=== PATIENT | female | born 1945 | race Hispanic/Latino ===

== ENCOUNTER 2018-04-18 11:30 | Emergency (ER) | payer MEDICARE ==
[~2018-04-18 11:30] MED LIST: AMIT25TA9 PO; FLUO40CA49 PO; GABA-529 PO; OMEP40CA37 PO; TRAM-355 PO; [UNRECOGNIZED DRUG - OTHER] PO
[2018-04-18] MEDS ORDERED: SILVER SULFADIAZINE CREAM 50 GM TP ONE (12:11)
[2018-04-18] MEDS ORDERED: TETANUS/DIPHTHERIA TOXOID [ADULT] 0.5 ML VIAL IM ONE (12:11)
[2018-04-18] MEDS ORDERED: ACETAMINOPHEN-CODEINE 300/30MG TAB ONE (12:11)
== END 2018-04-18 13:33 | disposition home or self-care (01) ==
LOC: EDH 11:30
DX: T25.221A Burn of second degree of right foot, initial encounter (principal); T31.0 Burns involving less than 10% of body surface; E78.5 Hyperlipidemia, unspecified; I10 Essential (primary) hypertension; Z90.710 Acquired absence of both cervix and uterus; X12.XXXA Contact with other hot fluids, initial encounter; Y93.E1 Activity, personal bathing and showering; Y92.098 Other place in other non-institutional residence as the place of occurrence of the external cause; Y99.8 Other external cause status
CPT/HCPCS: 16020; 90471; 90714

== ENCOUNTER 2020-10-14 01:43 | Emergency (ER) | payer MEDICARE ==
[~2020-10-14] VITALS: Ht 149.9 cm; Wt 81.2 kg
[~2020-10-14 01:43] MED LIST changes: +OMEP40CA21 PO; -OMEP40CA37 PO
[2020-10-14] MEDS ORDERED: METH4TAB3 PO (06:01)
[2020-10-14 06:45] VITALS: BP 133/54
== END 2020-10-14 08:09 | disposition home or self-care (01) ==
LOC: EDH 01:43
DX: S00.83XA Contusion of other part of head, initial encounter (principal); M79.18 Myalgia, other site; M54.2 Cervicalgia; F32.9 Major depressive disorder, single episode, unspecified; I10 Essential (primary) hypertension; M19.90 Unspecified osteoarthritis, unspecified site; Z79.899 Other long term (current) drug therapy; W18.39XA Other fall on same level, initial encounter; Y93.01 Activity, walking, marching and hiking; Y92.89 Other specified places as the place of occurrence of the external cause; Y99.8 Other external cause status
CPT/HCPCS: 70450; 72125

== ENCOUNTER 2022-05-10 00:13 | Observation (INO) | payer MEDICARE ==
[~2022-05-10] VITALS: Ht 144.8 cm; Wt 81.5 kg
[~2022-05-10 00:13] MED LIST changes: +METH4TAB3 PO
[2022-05-10 00:56] LABS: BASOPHILS % (AUTO) 0.2 % (0.0-5.0); EOSINOPHILS % (AUTO) 3.4 % (0.0-8.0); HEMATOCRIT 34.9 % (36-48); LYMPHOCYTES % (AUTO) 34.7 % (21.0-51.0); MEAN CORPUSCULAR HGB CONC 32.7 g/dL (32.0-36.0); MEAN CORPUSCULAR VOLUME 91.8 fL (79-99); MONOCYTES % (AUTO) 8.3 % (3.0-13.0); NEUTROPHILS % (AUTO) 53.2 % (40.0-77.0); PLATELET COUNT (AUTO) 204 K/uL (130-400); RED CELL DISTRIBUTION WIDTH 15.5 % (11.0-15.5); WHITE BLOOD COUNT (AUTO) 5.1 K/uL (4.8-10.8)
[2022-05-10 00:59] LABS: APPEARANCE,URINE CLEAR (CLEAR); BILIRUBIN,URINE NEGATIVE (NEGATIVE); COLOR,URINE LIGHT-YELLOW (YELLOW); GLUCOSE, URINE (UA) NEGATIVE (NEGATIVE); KETONES,URINE NEGATIVE (NEGATIVE); LEUKOCYTE ESTERASE ,URINE NEGATIVE Leu/uL (NEGATIVE); NITRATE,URINE NEGATIVE (NEGATIVE); OCCULT BLOOD,URINE NEGATIVE (NEGATIVE); PROTEIN,URINE NEGATIVE (NEGATIVE); UROBILINOGEN,URINE 0.2 mg/dL (0.2-1.0)
[2022-05-10 01:30] LABS: POTASSIUM 4.3 mmol/L (3.5-5.1)
[2022-05-10 01:31] LABS: ALBUMIN 3.8 g/dL (3.5-5.0); CREATININE 1.3 mg/dL (0.5-1.5)
[2022-05-10] MEDS ORDERED: POTASSIUM CHLORIDE 20MEQ/100ML 100 ML IV PRN (03:00)
[2022-05-10] MEDS ORDERED: LACTULOSE 20 GM/30 ML UDCUP PO PRN (03:00)
[2022-05-10] MEDS ORDERED: MAGNESIUM 2GM PREMIX 50ML 50 ML IV PRN (03:00)
[2022-05-10] MEDS ORDERED: MORPHINE 4 MG SYG IV PRN (03:00)
[2022-05-10] MEDS ORDERED: ACETAMINOPHEN 325 MG TAB PO PRN ×2 (03:00)
[2022-05-10] MEDS ORDERED: ONDANSETRON 4MG INJ IV PRN (03:00)
[2022-05-10] MEDS ORDERED: POTASSIUM CHLORIDE 10% ELIXIR 20 MEQ/15 ML UDCUP PO PRN (03:00)
[2022-05-10] MEDS ORDERED: LIDOCAINE HCL-MPF 1% 2ML VIAL IV PRN (03:00)
[2022-05-10] MEDS ORDERED: MORPHINE 2 MG SYG IV PRN (03:00)
[2022-05-10] MEDS ORDERED: KCL 20 MEQ ERTAB PO PRN (03:00)
[2022-05-10] MEDS ORDERED: LIDOCAINE HCL 2% VISCOUS 15 ML UDCUP ONE (03:28)
[2022-05-10] MEDS ORDERED: MAG/ALUM/SIMETH 30 ML UDCUP ONE (03:28)
[2022-05-10] MEDS ORDERED: DICYCLOMINE HCL 10 MG/5 ML ML PO ONE ×2 (03:29→03:30)
[2022-05-10] MEDS ORDERED: MAG/ALUM/SIMETH 30 ML UDCUP PO ONE (03:30)
[2022-05-10] MEDS ORDERED: LIDOCAINE HCL 2% VISCOUS 15 ML UDCUP PO ONE (03:30)
[2022-05-10] MEDS: LACTATED RINGERS 1000ML 1,000 ML IV SCH ×2 (03:33→20:40)
[2022-05-10] MEDS ORDERED: IOHEXOL 350 MG/ML 100ML INFUS..BTL IV ONE (04:23)
[2022-05-10 05:05] VITALS: BP 133/66
[2022-05-10] MEDS ORDERED: PANT40TA54 PO ×2 (06:27→17:09)
[2022-05-10] MEDS ORDERED: LISI10TA24 PO ×2 (06:27→17:09)
[2022-05-10] MEDS ORDERED: HYDR-4419 PO ×2 (06:27→17:09)
[2022-05-10] MEDS ORDERED: HYDR5TAB14 PO ×2 (06:27→17:09)
[2022-05-10] MEDS ORDERED: ATOR10TA69 PO ×2 (06:27→17:09)
[2022-05-10] MEDS ORDERED: FERS325 PO (06:27)
[2022-05-10] MEDS ORDERED: PERM60CR4 TP ×2 (06:27→17:09)
[2022-05-10] MEDS ORDERED: LINA145C PO ×2 (06:27→17:09)
[2022-05-10] MEDS ORDERED: CELE-84 PO ×2 (06:27→17:09)
[2022-05-10] MEDS ORDERED: PROP1DRO4 OP ×2 (06:27→17:09)
[2022-05-10 08:00] VITALS: BP 137/61
[2022-05-10] MEDS: FAMOTIDINE 20MG VIAL IV SCH (10:08)
[2022-05-10] MEDS: ENOXAPARIN SODIUM 40 MG/0.4 ML SYRINGE SQ SCH (10:09)
[2022-05-10 11:57] VITALS: BP 135/76
[2022-05-10 16:00] VITALS: BP 133/59
[2022-05-10] MEDS ORDERED: PERMETHRIN CREAM 5% 60GM TUBE TP PRN (17:00)
[2022-05-10] MEDS ORDERED: NON-FORMULARY MEDICATION 1 EACH (Linaclotide (Linzess) 145 MCG) PO PRN (17:00)
[2022-05-10] MEDS ORDERED: FERR-72 PO (17:09)
[2022-05-10 19:00] VITALS: BP 148/76
[2022-05-10] MEDS ORDERED: GABAPENTIN 100 MG CAPSULE PO SCH (21:00)
[2022-05-10] MEDS ORDERED: HYDROCORTISONE 5 MG PO SCH (21:00)
[2022-05-11] VITALS: BP 119/69
[2022-05-11 04:00] VITALS: BP 146/73
[2022-05-11] MEDS: LACTATED RINGERS 1000ML 1,000 ML IV SCH (05:39)
[2022-05-11 05:59] LABS: BASOPHILS % (AUTO) 0.3 % (0.0-5.0); HEMATOCRIT 32.7 % (36-48); LYMPHOCYTES % (AUTO) 37.9 % (21.0-51.0); MEAN CORPUSCULAR HEMOGLOBIN 30.1 pg (27.0-33.0); MEAN CORPUSCULAR HGB CONC 32.4 g/dL (32.0-36.0); MEAN CORPUSCULAR VOLUME 92.9 fL (79-99); MONOCYTES % (AUTO) 9.3 % (3.0-13.0); NEUTROPHILS % (AUTO) 47.2 % (40.0-77.0); PLATELET COUNT (AUTO) 173 K/uL (130-400); RED BLOOD CELL COUNT(AUTO) 3.52 MIL/uL (4.00-5.50); RED CELL DISTRIBUTION WIDTH 15.1 % (11.0-15.5)
[2022-05-11 06:13] LABS: CREATININE 0.8 mg/dL (0.5-1.5); MAGNESIUM 1.9 mg/dL (1.80-2.40); PHOSPHORUS 3.3 mg/dL (2.5-4.9); POTASSIUM 4.5 mmol/L (3.5-5.1)
[2022-05-11 07:38] VITALS: BP 127/75
[2022-05-11 07:48] LABS: BASOPHILS % (MANUAL) 2 % (0-2); EOSINOPHILS % (MANUAL) 11 % (1-6); LYMPHOCYTES % (MANUAL) 38 % (22-44); MAN.DIFF COMMENT-IMPRESSION MANUAL DIFFERENTIAL; MONOCYTES % (MANUAL) 3 % (2-9); PLATELET MORPHOLOGY COMMENT ADEQUATE; REACTIVE LYMPHOCYTES 5 % (0-0); SEGMENTED NEUTROPHILS % 41 % (40-70)
[2022-05-11] MEDS: ENOXAPARIN SODIUM 40 MG/0.4 ML SYRINGE SQ SCH (08:55)
[2022-05-11] MEDS: FAMOTIDINE 20MG VIAL IV SCH (08:55)
[2022-05-11] MEDS ORDERED: PANTOPRAZOLE 40 MG TAB DR PO SCH (09:00)
[2022-05-11] MEDS ORDERED: ATORVASTATIN 10 MG TABLET PO SCH (09:00)
[2022-05-11] MEDS ORDERED: NON-FORMULARY MEDICATION 1 EACH (Hydrocortisone 10 MG) PO SCH (09:00)
[2022-05-11] MEDS ORDERED: LISINOPRIL 10 MG TABLET PO SCH (09:00)
[2022-05-11] MEDS ORDERED: NON-FORMULARY MEDICATION 1 EACH (Ferrous Sulfate 325 MG) PO SCH (09:00)
[2022-05-11] MEDS ORDERED: FLUOXETINE HCL 40 MG PO SCH (09:00)
[2022-05-11] MEDS ORDERED: CELECOXIB 200 MG CAP PO SCH (09:00)
[2022-05-11] MEDS ORDERED: FLUOXETINE HCL 20 MG CAPSULE PO SCH (09:00)
[2022-05-11 11:12] VITALS: BP 138/82
== END 2022-05-11 13:10 | disposition home or self-care (01) ==
LOC: EDH 00:13 → INTOOBSV 02:55 → EDHIP 02:55 → 3DH 04:05
PROVIDERS: ADMIT Internal Medicine; ATTEND Internal Medicine
DX: R10.9 Unspecified abdominal pain (principal); I10 Essential (primary) hypertension; E78.5 Hyperlipidemia, unspecified; F41.8 Other specified anxiety disorders; E78.00 Pure hypercholesterolemia, unspecified; I25.10 Atherosclerotic heart disease of native coronary artery without angina pectoris; E03.9 Hypothyroidism, unspecified; K29.70 Gastritis, unspecified, without bleeding; Z90.710 Acquired absence of both cervix and uterus; Z51.5 Encounter for palliative care; Z96.653 Presence of artificial knee joint, bilateral; Z79.899 Other long term (current) drug therapy
CPT/HCPCS: 96372 ×2; 96361 ×2; 96375; 99285; 84484 ×2; 80053; 83690; 85025 ×2; 81003; 36415 ×2; 74177; 93005; 96376; 96365; 96366; 83735; 84100; 80048; J7120; J3490 ×2; J1650 ×2; Q9967; G0378; J3475

== ENCOUNTER 2022-07-12 11:32 | Emergency (ER) | payer MEDICARE ==
[~2022-07-12] VITALS: Ht 152.4 cm; Wt 81.6 kg
[~2022-07-12 11:32] MED LIST changes: -AMIT25TA9 PO; +ATOR10TA69 PO; +CELE-84 PO; +FERR-72 PO; -FLUO40CA49 PO; -GABA-529 PO; +HYDR-4419 PO; +HYDR5TAB14 PO; +LINA145C PO; +LISI10TA24 PO; -METH4TAB3 PO; -OMEP40CA21 PO; +PANT40TA54 PO; +PERM60CR4 TP; +PROP1DRO4 OP; -TRAM-355 PO; -[UNRECOGNIZED DRUG - OTHER] PO
[2022-07-12 13:12] LABS: BASOPHILS % (AUTO) 0.4 % (0.0-5.0); EOSINOPHILS % (AUTO) 5.2 % (0.0-8.0); HEMATOCRIT 33.4 % (36-48); LYMPHOCYTES % (AUTO) 34.1 % (21.0-51.0); MEAN CORPUSCULAR VOLUME 96.8 fL (79-99); MONOCYTES % (AUTO) 8.5 % (3.0-13.0); NEUTROPHILS % (AUTO) 51.4 % (40.0-77.0); PLATELET COUNT (AUTO) 211 K/uL (130-400); RED BLOOD CELL COUNT(AUTO) 3.45 MIL/uL (4.00-5.50); WHITE BLOOD COUNT (AUTO) 4.6 K/uL (4.8-10.8)
[2022-07-12 13:30] LABS: CREATININE 1.4 mg/dL (0.5-1.5); POTASSIUM 4.5 mmol/L (3.5-5.1)
[2022-07-12 13:34] LABS: ALBUMIN 3.6 g/dL (3.5-5.0); TOTAL PROTEIN, SERUM 6.6 g/dL (6.0-8.3)
[2022-07-12] MEDS ORDERED: IOHEXOL-350 50ML VIAL IV ONE (15:08)
[2022-07-12 15:41] LABS: APPEARANCE,URINE CLEAR (CLEAR); BILIRUBIN,URINE NEGATIVE (NEGATIVE); COLOR,URINE LIGHT-YELLOW (YELLOW); GLUCOSE, URINE (UA) NEGATIVE (NEGATIVE); KETONES,URINE NEGATIVE (NEGATIVE); LEUKOCYTE ESTERASE ,URINE 75 Leu/uL (NEGATIVE); NITRATE,URINE NEGATIVE (NEGATIVE); OCCULT BLOOD,URINE NEGATIVE (NEGATIVE); PROTEIN,URINE NEGATIVE (NEGATIVE); UROBILINOGEN,URINE 0.2 mg/dL (0.2-1.0)
[2022-07-12 16:08] LABS: BACTERIA,URINE RARE /HPF (None Seen); MUCUS,URINE RARE LPF (None Seen); SQUAMOUS EPITHELIAL CELL,UR RARE /HPF (0-2)
[2022-07-12 17:40] VITALS: BP 130/67
== END 2022-07-12 17:39 | disposition home or self-care (01) ==
LOC: EDH 11:32
DX: B34.9 Viral infection, unspecified (principal); F41.9 Anxiety disorder, unspecified; M19.90 Unspecified osteoarthritis, unspecified site; F32.A Depression, unspecified; E78.00 Pure hypercholesterolemia, unspecified; E03.9 Hypothyroidism, unspecified; I10 Essential (primary) hypertension; Z79.1 Long term (current) use of non-steroidal anti-inflammatories (NSAID); Z79.899 Other long term (current) drug therapy; Z20.822 Contact with and (suspected) exposure to COVID-19
CPT/HCPCS: 99285; 70450; 71045; 87635; 84484; 80053; 85025; 87088; 87880; 87804 ×2; 83605; 81001; 36415; 70491; 93005; C9803; Q9967

== ENCOUNTER 2022-12-08 09:39 | Emergency (ER) | payer MEDICARE ==
[~2022-12-08] VITALS: Ht 152.4 cm; Wt 73.5 kg
[~2022-12-08 09:39] MED LIST changes: +CELE-125 PO; -CELE-84 PO
[2022-12-08 10:04] VITALS: BP 113/53; PULSE 71; RESP 18; O2SAT 98
[2022-12-08 10:10] LABS: HEMATOCRIT 35.2 % (36-48); MEAN CORPUSCULAR HEMOGLOBIN 31.5 pg (27.0-33.0); MEAN CORPUSCULAR HGB CONC 33.2 g/dL (32.0-36.0); MEAN CORPUSCULAR VOLUME 94.6 fL (79-99); RED BLOOD CELL COUNT(AUTO) 3.72 MIL/uL (4.00-5.50); WHITE BLOOD COUNT (AUTO) 3.4 K/uL (4.8-10.8)
[2022-12-08 10:26] LABS: CREATININE 1.1 mg/dL (0.5-1.5); MAGNESIUM 1.9 mg/dL (1.80-2.40); POTASSIUM 3.8 mmol/L (3.5-5.1)
[2022-12-08] MEDS ORDERED: LACTATED RINGERS 1000ML 1,000 ML IV ONE (12:00)
[2022-12-09] MEDS ORDERED: GABA-529 PO (23:32)
[2022-12-09] MEDS ORDERED: LACT10SO76 PO (23:32)
[2022-12-09] MEDS ORDERED: FLUO40CA49 PO (23:32)
[2022-12-12] MEDS ORDERED: FERR-72 PO (13:01)
[2022-12-12] MEDS ORDERED: AMLO2.5T2 PO (13:01)
== END 2022-12-08 13:47 | disposition home or self-care (01) ==
LOC: EDH 09:39
DX: I95.9 Hypotension, unspecified (principal); F43.20 Adjustment disorder, unspecified; F41.9 Anxiety disorder, unspecified; E11.9 Type 2 diabetes mellitus without complications; E78.00 Pure hypercholesterolemia, unspecified; I10 Essential (primary) hypertension; M19.90 Unspecified osteoarthritis, unspecified site; Z79.1 Long term (current) use of non-steroidal anti-inflammatories (NSAID); Z79.899 Other long term (current) drug therapy
CPT/HCPCS: 99285; 83735; 84484; 80048; 83880; 85027; 36415; 71045; 96360; 93005; J7120

== ENCOUNTER 2023-09-09 02:05 | Emergency (ER) | payer MEDICARE ==
[~2023-09-09] VITALS: Ht 152.4 cm; Wt 81.6 kg
[~2023-09-09 02:05] MED LIST changes: +AMLO2.5T2 PO; +FLUO40CA49 PO; +GABA-529 PO; -HYDR-4419 PO; -HYDR5TAB14 PO; +LACT10SO76 PO; -LINA145C PO; -LISI10TA24 PO; -PERM60CR4 TP; -PROP1DRO4 OP
[2023-09-09 03:00] LABS: APPEARANCE,URINE CLEAR (CLEAR); BILIRUBIN,URINE NEGATIVE (NEGATIVE); COLOR,URINE COLORLESS (YELLOW); GLUCOSE, URINE (UA) NEGATIVE (NEGATIVE); KETONES,URINE NEGATIVE (NEGATIVE); LEUKOCYTE ESTERASE ,URINE 25 Leu/uL (NEGATIVE); NITRATE,URINE NEGATIVE (NEGATIVE); PROTEIN,URINE NEGATIVE (NEGATIVE); UROBILINOGEN,URINE 0.2 mg/dL (0.2-1.0)
[2023-09-09 03:07] LABS: ADD UA MICROSCOPIC YES
[2023-09-09 03:08] LABS: BACTERIA,URINE RARE /HPF (None Seen); RBC,URINE 0-1 /HPF (0-1); SQUAMOUS EPITHELIAL CELL,UR RARE /HPF (0-2)
[2023-09-09] MEDS: ACETAMINOPHEN 325 MG TAB PO ONE (03:23)
[2023-09-09 03:34] LABS: BASOPHILS # (AUTO) 0.02 K/uL (0.00-0.20); BASOPHILS % (AUTO) 0.5 % (0.0-5.0); EOSINOPHILS % (AUTO) 4.5 % (0.0-8.0); HEMATOCRIT 30.5 % (36-48); IMMATURE GRANULOCYTE ABSOLUTE 0.02 K/uL (0-1); LYMPHOCYTES # (AUTO) 1.3 K/uL (1.0-4.8); LYMPHOCYTES % (AUTO) 29.9 % (21.0-51.0); MEAN CORPUSCULAR HEMOGLOBIN 28.6 pg (27.0-33.0); MEAN CORPUSCULAR HGB CONC 32.1 g/dL (32.0-36.0); MEAN CORPUSCULAR VOLUME 88.9 fL (79-99); MONOCYTES # (AUTO) 0.4 K/uL (0.1-1.0); MONOCYTES % (AUTO) 7.9 % (3.0-13.0); NEUTROPHILS # (AUTO) 2.5 K/uL (1.8-7.7); NEUTROPHILS % (AUTO) 56.7 % (40.0-77.0); PLATELET COUNT (AUTO) 221 K/uL (130-400); RED BLOOD CELL COUNT(AUTO) 3.43 MIL/uL (4.00-5.50); RED CELL DISTRIBUTION WIDTH 13.5 % (11.0-15.5); WHITE BLOOD COUNT (AUTO) 4.4 K/uL (4.8-10.8)
[2023-09-09 03:43] LABS: CREATININE 1.2 mg/dL (0.5-1.0); POTASSIUM 4.3 mmol/L (3.5-5.1)
[2023-09-09 03:47] LABS: ALBUMIN 3.2 g/dL (3.5-5.0); BILIRUBIN,TOTAL 0.3 mg/dL (0.2-1.0); MAGNESIUM 1.9 mg/dL (1.80-2.40); TOTAL PROTEIN, SERUM 6.3 g/dL (6.0-8.3)
[2023-09-09 04:10] VITALS: BP 113/68; PULSE 62; RESP 16; O2SAT 97
== END 2023-09-09 04:56 | disposition home or self-care (01) ==
LOC: EDH 02:05
DX: I10 Essential (primary) hypertension (principal); E78.00 Pure hypercholesterolemia, unspecified; F32.A Depression, unspecified; F41.9 Anxiety disorder, unspecified; M19.90 Unspecified osteoarthritis, unspecified site; Z79.899 Other long term (current) drug therapy; Z98.890 Other specified postprocedural states
CPT/HCPCS: 36415; 70450; 71045; 80053; 81001; 82550; 83735; 84484; 85025

== ENCOUNTER 2024-03-14 09:17 | Emergency (ER) | payer MEDICARE ==
[~2024-03-14] VITALS: Ht 149.9 cm; Wt 83.0 kg
[2024-03-14 09:19] VITALS: BP 114/81; PULSE 97; RESP 16; TEMP 97.7
[2024-03-14 10:05] LABS: MEAN CORPUSCULAR HEMOGLOBIN 31.9 pg (27.0-33.0); MEAN CORPUSCULAR HGB CONC 33.8 g/dL (32.0-36.0); MEAN CORPUSCULAR VOLUME 94.2 fL (79-99); PLATELET COUNT (AUTO) 147 K/uL (130-400); RED BLOOD CELL COUNT(AUTO) 4.14 MIL/uL (4.00-5.50); RED CELL DISTRIBUTION WIDTH 12.5 % (11.0-15.5); WHITE BLOOD COUNT (AUTO) 2.9 K/uL (4.8-10.8)
[2024-03-14 10:19] LABS: CREATININE 1.3 mg/dL (0.5-1.0); POTASSIUM 3.5 mmol/L (3.5-5.1)
[2024-03-14 10:21] LABS: ALBUMIN 3.4 g/dL (3.5-5.0); BILIRUBIN,TOTAL 0.3 mg/dL (0.2-1.0); TOTAL PROTEIN, SERUM 7.2 g/dL (6.0-8.3)
--- NOTE | 2024-03-14 11:06 | ERN ---
ED Note History of Present Illness Stated Complaint: FATIGUE Chief Complaint: Fatigue Time Seen by MD: 09:40 Dictation: PATIENT IS A 78-YEAR-OLD FEMALE HERE WITH HER DAUGHTER WITH COMPLAINTS OF HAVING GENERALIZED BODY WEAKNESS DECREASED APPETITE SINCE MONDAY. ADDITIONALLY SHE IS HAVING MILD DIFFUSE ABDOMINAL PAIN WITHOUT NAUSEA VOMITING DIARRHEA NO FEVER NO CHILLS. SHE DENIES CHEST PAIN BACK PAIN OR SOB. SHE HAS A PRIMARY CARE DOCTOR IN [facility] HOWEVER HAS NOT BEEN TO SEE HIM SINCE THE ONSET OF THE SYMPTOMS Allergies: Coded Allergies: No Known Drug Allergies (Verified Allergy, 05/30/12) Home Meds Active Scripts Amlodipine Besylate (Norvasc 2.5MG Tab) 2.5 Mg Tablet, 2.5 MG PO DAILY, #30 TAB Prov:ALEX HAMPTON AGPCNP 12/12/22 Ferrous Sulfate (Ferrous Sulfate) 325 Mg (65 Mg Iron) Tablet, 325 MG PO DAILY, #30 TAB Prov:ALEX HAMPTONPCNP 12/12/22 Reported Medications Fluoxetine HCl (Fluoxetine HCl) 40 Mg Capsule, 1 CAP PO DAILY 12/09/22 Gabapentin (Gabapentin) 100 Mg Capsule, 1 CAP PO BID for pain 12/09/22 Lactulose (Constulose) 10 Gram/15 Ml Solution, 15 ML PO BID PRN for constipation 12/09/22 Pantoprazole Sodium (Pantoprazole Sodium) 40 Mg Tablet.dr, 40 MG PO DAILY, TAB 05/10/22 Celecoxib (Celecoxib) 200 Mg Capsule, 200 MG PO DAILY, CAP 05/10/22 Atorvastatin Calcium (Atorvastatin Calcium) 10 Mg Tablet, 10 MG PO DAILY, TAB 05/10/22 Past Medical History Past Medical History: Anxiety, Depression, Diabetes-Type II, High Cholesterol, Hypertension, Hypotension Additional Past Medical Hx: ARTHRITIS Surgical History: Other Surgical History Other: BILATERAL KNEES, CATARACTS Family History: HTN Social History: Negative, Lives with family History: Not Applicable Initial Vital Sign VS Vital Signs Date Time Temp Pulse Resp B/P (MAP) Pulse Ox O2 Delivery O2 Flow Rate FiO2 03/14/24 09:19 97.7 97 16 114/81 99 Room Air Results (Laboratory/Radiology) Laboratory/Radiology Laboratory Tests Test 03/14/24 09:48 White Blood Count 2.9 K/uL (4.8-10.8) L Red Blood Count 4.14 MIL/uL (4.00-5.50) Hemoglobin 13.2 g/dL (12.0-16.0) Hematocrit 39.0 % (36-48) Mean Corpuscular Volume 94.2 fL (79-99) Mean Corpuscular Hemoglobin 31.9 pg (27.0-33.0) Mean Corpuscular Hemoglobin Concent 33.8 g/dL (32.0-36.0) Red Cell Distribution Width 12.5 % (11.0-15.5) Platelet Count 147 K/uL (130-400) Mean Platelet Volume 9.6 fL (7.5-10.5) Segmented Neutrophils % 54 % (40-70) Band Neutrophils % 17 % (0-2) H Lymphocytes % (Manual) 25 % (22-44) Monocytes % (Manual) 4 % (2-9) Nucleated Red Blood Cells 0.0 % (0.0-0.19) Differential Comment MANUAL DIFFERENTIAL White Cell Morphology Comment CONSISTENT W/DIFF Platelet Morphology Comment ADEQUATE Red Blood Cell Morphology ANISO 1+ Sodium Level 136 mmol/L (136-145) Potassium Level 3.5 mmol/L (3.5-5.1) Chloride Level 98 mmol/L (101-111) L Carbon Dioxide Level 29 mmol/L (21-32) Blood Urea Nitrogen 15 mg/dL (7-18) Creatinine 1.3 mg/dL (0.5-1.0) H Glomerular Filtration Rate Calc 43 mL/min (>90) Random Glucose 159 mg/dL (70-105) H Total Calcium 8.9 mg/dL (8.5-10.1) Total Bilirubin 0.3 mg/dL (0.2-1.0) Aspartate Amino Transf (AST/SGOT) 27 U/L (10-37) Alanine Aminotransferase (ALT/SGPT) 26 U/L (12-78) Alkaline Phosphatase 73 U/L (50-136) Troponin I High Sensitivity 49 ng/L (4-50) Total Protein 7.2 g/dL (6.0-8.3) Albumin 3.4 g/dL (3.5-5.0) L EKG Comment: EKG sinus rhythm/heart rate 99//left axis deviation ED Course ED Course Orders Procedure Category Date Status Time Cbc Without LAB 03/14/24 Complete Differential 09:23 Comprehensive LAB 03/14/24 Complete Metabolic Panel 09:23 Urinalysis Profile LAB 03/14/24 Logged 09:23 Manual Differential LAB 03/14/24 Complete 09:48 Troponin I High LAB 03/14/24 Complete Sensitivity 11:05 12 Lead Ekg Tracing- EKG 03/14/24 Complete Technical 11:05 Vital Signs Date Time Temp Pulse Resp B/P (MAP) Pulse Ox O2 Delivery O2 Flow Rate FiO2 03/14/24 09:19 97.7 97 16 114/81 99 Room Air DX & DISP Departure Condition: Stable Referrals: MARCIA MARSHALL (PCP) JASON TELLES NP Mar 14, 2024 11:06
[2024-03-14 11:23] LABS: BAND NEUTROPHILS % (MANUAL) 17 % (0-2); LYMPHOCYTES % (MANUAL) 25 % (22-44); MAN.DIFF COMMENT-IMPRESSION MANUAL DIFFERENTIAL; MONOCYTES % (MANUAL) 4 % (2-9); PLATELET MORPHOLOGY COMMENT ADEQUATE; SEGMENTED NEUTROPHILS % 54 % (40-70); TOTAL CELLS COUNTED 100; WBC MORPHOLOGY CONSISTENT W/DIFF
--- NOTE | 2024-03-14 13:35 | EKG ---
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
--- NOTE | 2024-03-14 15:07 | NUR ---
CALLED PT OUT IN LOBBY NO ANSWER
--- NOTE | 2024-03-14 15:39 | NUR ---
CALLED PT OUT IN LOBBY NO ANSWER
== END 2024-03-14 15:07 | disposition left against medical advice (07) ==
LOC: EDH 09:17
DX: R53.83 Other fatigue (principal); R53.1 Weakness; R10.84 Generalized abdominal pain; E11.9 Type 2 diabetes mellitus without complications; E78.00 Pure hypercholesterolemia, unspecified; F32.A Depression, unspecified; F41.9 Anxiety disorder, unspecified; I10 Essential (primary) hypertension; M19.90 Unspecified osteoarthritis, unspecified site; Z53.21 Procedure and treatment not carried out due to patient leaving prior to being seen by health care provider; Z79.1 Long term (current) use of non-steroidal anti-inflammatories (NSAID); Z79.899 Other long term (current) drug therapy
CPT/HCPCS: 36415; 80053; 84484; 85027; 93005; 99284